=== PATIENT | male | born 1975 | race Caucasian/White ===

== ENCOUNTER 2022-05-05 08:58 | Emergency (ER) | payer OTHER, SELFPAY ==
[2022-05-05 09:01] VITALS: BP 136/100; PULSE 92; RESP 20; TEMP 36.9; O2SAT 97
--- NOTE | 2022-05-05 09:26 | ED.GENADUL_ITS ---
Discharge Plan Disposition Patient Disposition: Home Condition: Stable Discharge Details Clinical Impression: Pneumonia, Conjunctivitis ED Provider: Otis Solorio Home Meds and New Rx's Prescriptions: New doxycycline hyclate 100 mg tablet 100 mg PO BID Qty: 9 0RF Continued Centrum Silver Men 300-600-300 mcg Tablet 1 tab PO DAILY Discharge Instructions Instructions: Erythromycin (Into the eye), Pneumonia (ED), Conjunctivitis (ED) Additional Instructions: Apply 0.5 inch ribbon of antibiotic ointment to your eyes 4 times a day for the next 1 week. Take antibiotic as prescribed. COVID test today is pending. Please maintain home isolation until test result is available and negative. Please take ibuprofen over the counter. Take 600mg by mouth every 6 hours as needed for fever. Please contact your primary care physician to arrange follow-up. Return to the ER immediately for any worsening or new concerning symptoms. Stand Alone Forms: Work Release Medical Decision Making 46-year-old male here with 1 week of productive cough, fever and sinus congestion, now with conjunctivitis. Patient is saturating well in no respiratory distress, hemodynamically stable and not septic appearing. He does have some fine rales right lower lung. Plan to treat for pneumonia and conjunctivitis. I have initiated treatment with doxycycline and erythromycin. Usual customary discharge instructions reviewed with the patient. HPI General Mode of arrival: ambulatory . Date/Time Provider Initiated Documentation: 05/05/22 09:09 . Limitations to Documentation: no limitations . Information obtained by: patient . HPI Narrative: 46-year-old male here with chief complaint of eye inflammation. Patient states over the past 1 week he has had cough productive of green sputum. He has associated sinus congestion. Today woke up with inflammation of his eyes. He states he has had green discharge from his eyes. This morning they were sealed shut with. Symptoms are moderate. He notes cough has improved somewhat over the past couple days. He has had associated fever. No known exposure but patient does work in a post office. Related Data Home Medications Medication Instructions Recorded Confirmed doxycycline hyclate 100 mg tablet 100 mg PO BID #9 tabs 05/05/22 [id number] acid 300 1 tab PO DAILY 05/05/22 05/05/22 mcg-lycopene 600 mcg-lutein 300 mcg tablet (Centrum Silver Men) Previous Rx's Medication Instructions Recorded doxycycline hyclate 100 mg tablet 100 mg PO BID #9 tabs 05/05/22 Allergies Allergy/AdvReac Type Severity Reaction Status Date / Time No Known Allergies Allergy Unverified 05/05/22 09:07 General Stated Complaint: RespSymp PUJA: 4 Review of Systems All systems reviewed & are unremarkable except as noted in HPI and below Constitutional Constitutional: Reports fatigue and Reports fever(s) ENT Ears, Nose, Mouth, and Throat: Reports nasal congestion and Reports sore throat Respiratory Respiratory: Reports cough Gastrointestinal Gastrointestinal: Denies vomiting Integumentary/Breasts Skin/Breast: Denies rash Endocrine Endocrine: Reports fatigue PFSH All Active Problems Pneumonia (Acute) Conjunctivitis (Acute) Social History Smoking/Tobacco Use Status: Never Smoking risk assessment performed?: Yes Alcohol Intake: current Alcohol Intake frequency: a few times a week Drug use: Never Substance use type: does not use Do you feel safe at home: Yes Do you feel safe in your relationship?: Yes Exam Const General: cooperative and no acute distress HENMT Mouth: moist mucous membranes Eyes Conjunctivae: conjunctival abnormality bilaterally conjunctival injection Sclera: normal sclerae Neck Neck: trachea midline and supple Resp Effort & Inspection: normal respiratory effort and cough Quality of cough: productive Auscultation: rales (fine right lower lung), no rhonchi and no wheezes Cardio Rate: regular rate and not tachycardic Rhythm: regular rhythm GI Palpation: soft, not firm, no guarding, no masses, not rigid and nontender Skin General skin exam: no rashes or lesions noted Neuro General: patient alert, patient awake, patient oriented x3 and tone normal Extrem General: no edema Psych Appearance: grossly normal Mental Status: mental status grossly normal Speech and Movement: speech and movement normal Course Vital Signs Vital signs: Vital Signs Temperature 36.9 C 05/05/22 09:01 Pulse 92 H 05/05/22 09:01 Respiratory Rate 20 05/05/22 09:01 Blood Pressure 136/100 H 05/05/22 09:01 Pulse Oximetry 97 05/05/22 09:01 Temperature 36.9 C 05/05/22 09:01 Temperature Source Oral 05/05/22 09:01 Pulse 92 H 05/05/22 09:01 Respiratory Rate 20 05/05/22 09:01 Respiratory Effort 05/05/22 09:06 Blood Pressure 136/100 H 05/05/22 09:01 Blood Pressure Position Sitting 05/05/22 09:01 Pulse Oximetry 97 05/05/22 09:01 Oxygen Delivery Method Room Air 05/05/22 09:01 Oxygen Flow Rate 0 05/05/22 09:01 Pain Level 1 05/05/22 09:01 PAWSS Have you Been Recently Intoxicated or Drunk Within the Last 30 days?: Yes Have you Ever Experienced Previous Episodes of Alcohol Withdrawal?: No Have you ever Experienced Withdrawal Seizures?: No Have you ever Experienced Delirium Tremens(DT)s?: No Have you ever undergone Alcohol Rehabilitation Treatment (i.e, inpt ot outpatient treatment programs)?: No Have you ever Experienced Blackouts?: No Have you ever Combined Alcohol with other Downers within the last 90 days?: No Have you ever Combined Alcohol with any other Substance of Abuse during the last 90 days?: No Positive Blood Alcohol level on Presentation? [PCS.BAL]: No Evidence of Increased Autonomic Activity (i.e. HR>120, tremor, sweating, agitation, nausea)?: No Result: 1
[2022-05-05] MEDS: Erythromycin Ophth Oint 3.5 GM TUBE OU (09:38)
[2022-05-05] MEDS: Doxycycline Hyclate 100 MG CAP PO (09:38)
[2022-05-06 01:39] LABS: COVID-19 RT-PCR UVMMC Result Negative (Negative)
== END 2022-05-05 09:41 | disposition home or self-care (01) ==
PROVIDERS: Emergency Provider Student in an Organized Health Care Education/Training Program
DX: J18.9 Pneumonia, unspecified organism (principal); H10.33 Unspecified acute conjunctivitis, bilateral
CPT/HCPCS: 99283; U0003

== ENCOUNTER → 2023-06-17 17:03 | Outpatient (CLI) | payer OTHER, SELFPAY ==
--- NOTE | 2023-06-17 17:15 | DI.RAD_ITS ---
Exam(s) XR CERVICAL SPINE COMP 4-5V EXAM: XR CERVICAL SPINE COMP 4-5V CLINICAL HISTORY: evaluate pathology. TECHNIQUE: 2D digital imaging was performed. Five views were performed. COMPARISON: No exams were available for comparison FINDINGS: BONES: No fracture or destructive lesion. Vertebral bodies are unremarkable. DISKS: Intervertebral disc spaces are maintained. Uncovertebral joint osteophytes greater on the ri ght side causing neural foraminal narrowing at C3-4. No left neural foraminal narrowing. ALIGNMENT: Cervical spinal alignment is within normal limits. The odontoid and atlantoaxial articulat ions are normal. SOFT TISSUE: Normal. The lung apices are clear. IMPRESSION: Neural foraminal narrowing at C3-4 secondary to uncovertebral joint osteophyte formation. DATA REPOSITORY: RADIATION DOSE DELIVERED:
--- NOTE | 2023-06-17 17:53 | DI.VRAD_ITS ---
PROCEDURE INFORMATION: Exam: XR Cervical Spine Exam date and time: 06/17/2023 5:21 PM Age: 47 years old Clinical indication: Other: Evaluate pathology TECHNIQUE: Imaging protocol: Radiologic exam of the cervical spine. Views: 4 or 5 views. COMPARISON: No relevant prior studies available. FINDINGS: Limitations: Limited clinical history. Bones/joints: Normal. No acute fracture. Normal alignment. Soft tissues: Unremarkable. IMPRESSION: No acute findings. Dictated and Authenticated by: Nahomy Dawson MD. Ordering:MEDINA Ku MD
== END ==
PROVIDERS: Visit Provider Nurse Practitioner Family
DX: M99.71 Connective tissue and disc stenosis of intervertebral foramina of cervical region; M25.78 Osteophyte, vertebrae
CPT/HCPCS: 72050

== ENCOUNTER 2023-09-21 18:54 | Outpatient (CLI) | payer OTHER, SELFPAY ==
[2023-09-21 17:24] LABS: ALT 39 U/L (16-63); AST 18 U/L (15-37); Albumin 4.2 g/dL (3.4-5.0); Alkaline Phosphatase 80 U/L (46-116); Anion Gap 9.6 mmol/L (3-11); BUN 24 mg/dL (7-18); Bilirubin, Total 0.4 mg/dL (0.2-1.0); CO2 31.4 mmol/L (21.0-32.0); CREATININE 1.3 mg/dL (0.70-1.30); Calcium 9.5 mg/dL (8.5-10.1); Calculated LDL 251 mg/dL (<100); Chloride 106 mmol/L (98-107); Cholesterol 349 mg/dL (<200); Estimated GFR 67.76 (mL/min/1.73m2); Glucose 118 mg/dL (74-106); HDL Cholesterol 55 mg/dL (40-60); Potassium 4.7 mmol/L (3.5-5.1); Sodium 147 mmol/L (136-145); TSH (W/Ref FT4) 1.87 uIU/mL (0.36-3.74); Total Protein 7.2 g/dL (6.4-8.2); Triglyceride 219 mg/dL (<150)
[2023-09-22 20:16] LABS: Hepatitis C Ab w Rflx HCV PCR Negative (Negative)
== END 2023-09-21 18:55 | disposition home or self-care (01) ==
LOC: LBO 18:55
PROVIDERS: PCP Nurse Practitioner Family; Visit Provider Nurse Practitioner Family
DX: Z76.89 Persons encountering health services in other specified circumstances
CPT/HCPCS: 36415; 80053; 80061; 86803; 83036; 84443; 85025

== ENCOUNTER 2024-01-11 10:22 | Emergency (ER) | payer OTHER, SELFPAY ==
[2024-01-11] VITALS (33 sets, daily range): BP systolic 112–176; BP diastolic 70–116; PULSE 65–101; RESP 13–24; O2SAT 96–100
--- NOTE | 2024-01-11 10:30 | DI.RAD_ITS ---
Exam(s) XR WRIST LT COMPLETE EXAM: XR WRIST LT COMPLETE CLINICAL HISTORY: pain s/p fall. TECHNIQUE: 2D digital imaging was performed. COMPARISON: No exams were available for comparison FINDINGS: 3 views There is an acute comminuted impacted and displaced fracture of the distal radius which also exhibits dorsal angulation and involvement of the radiocarpal joint. There is resultant positive ulnar varia nce. Small osteophytic density is seen adjacent to the tip of the ulna but this does not have the appearan ce of an obvious acute fracture fragment. The scaphoid and scapholunate distance appear intact and t here is no dislocation of the carpal row bones. IMPRESSION: Severely comminuted and displaced intra-articular impacted fracture of the distal radius. There is a lso dorsal angulation at the distal radial fracture site. No acute fracture of the distal ulna but t here is resultant positive ulnar variance. DATA REPOSITORY: RADIATION DOSE DELIVERED:
--- NOTE | 2024-01-11 10:30 | DI.RAD_ITS ---
Exam(s) XR FOREARM LT EXAM: XR FOREARM LT CLINICAL HISTORY: pain s/p fall. TECHNIQUE: 2D digital imaging was performed. COMPARISON: No exams were available for comparison FINDINGS: Two views. There is a comminuted displaced and dorsally angulated fracture of the distal radius with involvement of the radiocarpal joint surface. No obvious fracture of the ulna. More proximal aspects of the radius and ulna appear unremarkable, including at the elbow level. IMPRESSION: Comminuted displaced angulated fracture of the distal radius. DATA REPOSITORY: RADIATION DOSE DELIVERED:
--- NOTE | 2024-01-11 10:42 | W.ED.GENAD ---
Discharge Plan Disposition Patient Disposition: Home Condition: Stable Discharge Details Clinical Impression: Fracture of left wrist Primary Care Provider: Demi Domingo ED Provider: Bg Sorto Home Meds and New Rx's Prescriptions: Continued rosuvastatin 10 mg tablet 10 mg PO DAILY Qty: 90 3RF Centrum Silver Men 300-600-300 mcg Tablet 1 tab PO DAILY Discharge Instructions Additional Instructions: You can use a sling as needed for comfort in supporting your arm Call orthopedics tomorrow to arrange for follow-up appointment. I would recommend not having any food after midnight and only having water or black coffee in case they want to do any procedures tomorrow You can take 1000 mg of acetaminophen and 600 mg of ibuprofen every 6 hours as needed If you feel more ill or have new symptoms such as severe worsening pain return to the emergency department for Referrals: Favian Michael MD [ [facility] STAFF PHYSICIAN] - HPI General Mode of arrival: ambulatory. Date/Time Provider Initiated Documentation: 01/11/24 10:37. Limitations to Documentation: no limitations. Information obtained by: patient. History of Present Illness 48 year old M presents to the emergency department with the chief complaint of left wrist injury, described as moderate, Quality is described as aching, and is localized to the left and upper extremity. Patient reports no radiation. Patient started experiencing this minute(s) (30) and it has been constant. No relieving factors improve symptom(s), No exacerbating factors reported . Patient notes denies chest pain, headaches and shortness of breath. Patient did receive the following treatments prior to arrival, none Related Data Home Medications ?Medication ?Instructions ?Recorded ?Confirmed [id number]-ze-zsvqt 300 mcg-K 60 1 tab PO DAILY 05/05/22 01/11/24 mcg-lycop 600 mcg-lutein 300 mcg tablet (Centrum Silver Men) rosuvastatin 10 mg tablet 10 mg PO DAILY #90 tabs 09/23/23 01/11/24 Previous Rx's ?Medication ?Instructions ?Recorded rosuvastatin 10 mg tablet 10 mg PO DAILY #90 tabs 09/23/23 Allergies Allergy/AdvReac Type Severity Reaction Status Date / Time No Known Allergies Allergy Unverified 01/11/24 10:36 General Stated Complaint: Orthopedic PUJA: 3 Review of Systems All systems reviewed & are unremarkable except as noted in HPI and below Constitutional Constitutional: Denies chills, Denies fever(s) and Denies weakness Eyes Eyes: Denies loss of vision Cardiovascular Cardiovascular: Denies chest pain and Denies dyspnea Respiratory Respiratory: Denies cough and Denies dyspnea Gastrointestinal Gastrointestinal: Denies abdominal pain, Denies nausea and Denies vomiting Musculoskeletal Musculoskeletal: Reports limited range of motion Neurologic Neurologic: Denies loss of vision and Denies weakness Exam Const General: no acute distress Orientation: alert HENMT Head: normal to inspection Ears: external ears normal General nose exam: external nose normal Mouth: moist mucous membranes Eyes General: appearance normal, both eyes and all related structures Neck Neck: normal visual inspection Resp Effort & Inspection: normal respiratory effort and able to speak in complete sentences Cardio Rate: regular rate Skin General skin exam: no rashes or lesions noted Neuro General: patient alert and patient oriented x3 Extrem General: capillary refill normal Psych Mental Status: mental status grossly normal Course Vital Signs Vital signs: Vital Signs Pulse 77 01/11/24 10:32 Respiratory Rate 24 01/11/24 10:32 Blood Pressure 123/76 01/11/24 10:32 Pulse Oximetry 97 01/11/24 10:32 Pulse 77 01/11/24 10:32 Respiratory Rate 24 01/11/24 10:32 Blood Pressure 123/76 01/11/24 10:32 Blood Pressure Position Sitting 01/11/24 10:32 Pulse Oximetry 97 01/11/24 10:32 Oxygen Delivery Method Room Air 01/11/24 10:32 Oxygen Flow Rate 0 01/11/24 10:32 Procedures Procedural Sedation Indication: fracture/dislocation reduction ASA Class: I Preparation: machine joiner cementer applied, pulse oximeter, capnometry used and supplemental O2 applied Ketamine: IV Ketamine dose (mg): 150 Patient Tolerated Procedure: well Complications: none Medical Decision Making 48-year-old male with a history of hyperlipidemia not on any anticoagulation comes in after he fell approximately 10 feet off a ladder. Landed on his left hand and denies striking his head and had no loss of consciousness. He has pain in the left wrist, with swelling and limited range of motion due to pain. No pain in the fingers or hand with intact cap refill and pulses. He also has pain in the mid left forearm without palpable deformity. He has no midline C-spine, T-spine, L-spine tenderness and has full range of motion of his neck. There is no Scalp hematomas. He says he bit his left lower lip and has a small abrasion to the left lower lip. No changes in vision, pupils are equal and reactive to light. No chest or abdominal tenderness. Suspect he has a wrist fracture, will obtain x-rays to further evaluate. He has mild right knee soreness but has full range of motion and is bearing weight without any difficulty, discussed obtaining x-rays of his knee but he declines which I feel is reasonable. patient's imaging confirms a comminuted displaced impacted distal radius fracture and a small ulnar styloid fracture. Discussed results with him and he consents to hematoma block and attempt at reduction. I injected 10 cc of 2% lidocaine after drawing back and having blood return in the hematoma he had mild decrease in pain but still had too much pain to successfully reduce so we will proceed with procedural sedation which he consents to. He says he said anesthesia before without any issues. I provided sedation and Sejal Arana NP attempted reduction, no ortho information systems security manager today, no complications, 150mg iv ketamine given. Follow up xray showed improvement in fragments but still had displacement of the radial head. He was placed in a sugar-tong splint, he has intact sensation and movement in his fingers and normal cap refill post splint. He is stable for discharge and will follow-up with Ortho, return precautions given Differential Diagnosis Differential Diagnosis: Fracture, dislocation Imaging Data Radiologic Study: Attestation: I personally reviewed and interpreted this imaging study as follows: Imaging: X-Ray Radiologist's impression: PROCEDURE INFORMATION: Exam: XR Left Forearm Exam date and time: 01/11/2024 10:57 AM Age: 48 years old Clinical indication: Other: Fall TECHNIQUE: Imaging protocol: Radiologic exam of the left forearm. Views: 2 views. COMPARISON: CR XR WRIST LT COMPLETE 01/11/2024 10:55 AM FINDINGS: Bones/joints: Comminuted displaced impacted distal radius fracture. . There is a small ulnar styloid fracture. Soft tissues: Soft tissue swelling of the wrist IMPRESSION: 1. Comminuted displaced impacted distal ra Radiologic Study #2: Attestation: I personally reviewed and interpreted this imaging study as follows: Imaging: X-Ray Radiologist's impression: PROCEDURE INFORMATION: Exam: XR Left Wrist Exam date and time: 01/11/2024 10:55 AM Age: 48 years old Clinical indication: Other: Fall TECHNIQUE: Imaging protocol: Radiologic exam of the left wrist. Views: 3 or more views. COMPARISON: No relevant prior studies available. FINDINGS: Bones/joints: Comminuted displaced impacted distal radius fracture.. There may be minimal ulnar styloid fracture Soft tissues: Soft tissue swelling of the wrist IMPRESSION: Comminuted displaced impacted distal radius fracture.. Radiologic Study #3: Attestation: I personally reviewed and interpreted this imaging study as follows: Imaging: X-Ray Radiologist's impression: PROCEDURE INFORMATION: Exam: XR Left Wrist Exam date and time: 01/11/2024 12:42 PM Age: 48 years old Clinical indication: Other: Post reduction TECHNIQUE: Imaging protocol: Radiologic exam of the left wrist. Views: 1 or 2 views. COMPARISON: CR XR WRIST LT COMPLETE 01/11/2024 10:55 AM FINDINGS: Bones/joints: Comminuted displaced distal radius fracture. Fracture fragments have been reduced and are improved in alignment. This study is viewed through a plaster Soft tissues: Soft tissue swelling of the wrist IMPRESSION: Comminuted displaced distal radius fracture. Fracture fragments have been reduced and are improved in alignment. Quality:SDOH Health Related Social Needs: No Data to Display PFSH All Active Problems (Updated 01/11/24 @ 13:24 by Bg Sorto MD) Fracture of left wrist (Acute) Hyperlipidemia (Chronic) Bilateral hearing loss (Chronic) Psoriasis (Chronic) Obesity (BMI 30-39.9) (Chronic) Surgical History No pertinent past surgical history Family History Self Adopted Social History (Updated 07/02/23 @ 15:05 by Sarita Rose) Smoking/Tobacco Use Status: Never Smoking risk assessment performed?: Yes Alcohol Intake: current Alcohol Intake frequency: a few times a week Alcohol type: beer, wine and hard liquor Drug use: Never Substance use type: does not use Adopted: Yes Caregiver/Support person: No Household members: none Housing: house Education Level: college Details: some college Do you need help understanding health information?: Never 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 Sexually active: No Do you think of yourself as: straight/heterosexual Current gender identity: male What is your relationship status?: How often do you talk on the phone with friends or family?: once per week How often do you get together with friends or relatives?: once per week Do you belong to any clubs or organized social groups?: no Panel score (0-1 are the most socially isolated patients): 0 What type of physical activity do you participate in: none Frequency: does not exercise Special prakash needs: No Seatbelt use: always Drive intox or ride w/intox non emergency services ambulance driver: No Firearms in home: No Do you feel safe at home: Yes Do you feel safe in your relationship?: Yes Victim of physical abuse: No Victim of emotional abuse: No Victim of sexual abuse: No Would you like helpful sources: No
--- NOTE | 2024-01-11 11:17 | DI.VRAD_ITS ---
PROCEDURE INFORMATION: Exam: XR Left Forearm Exam date and time: 01/11/2024 10:57 AM Age: 48 years old Clinical indication: Other: Fall TECHNIQUE: Imaging protocol: Radiologic exam of the left forearm. Views: 2 views. COMPARISON: CR XR WRIST LT COMPLETE 01/11/2024 10:55 AM FINDINGS: Bones/joints: Comminuted displaced impacted distal radius fracture. . There is a small ulnar styloid fracture. Soft tissues: Soft tissue swelling of the wrist IMPRESSION: 1. Comminuted displaced impacted distal radius fracture. . 2. There is a small ulnar styloid fracture. Dictated and Authenticated by: Tess Austin MD. Ordering:ROSALIO Pederson MD
--- NOTE | 2024-01-11 11:17 | DI.VRAD_ITS ---
PROCEDURE INFORMATION: Exam: XR Left Wrist Exam date and time: 01/11/2024 10:55 AM Age: 48 years old Clinical indication: Other: Fall TECHNIQUE: Imaging protocol: Radiologic exam of the left wrist. Views: 3 or more views. COMPARISON: No relevant prior studies available. FINDINGS: Bones/joints: Comminuted displaced impacted distal radius fracture.. There may be minimal ulnar styloid fracture Soft tissues: Soft tissue swelling of the wrist IMPRESSION: Comminuted displaced impacted distal radius fracture.. Dictated and Authenticated by: Tess Austin MD. Ordering:ROSALIO Pederson MD
[2024-01-11] MEDS: Normal Saline 1,000 ML 1000 ML IV (11:55)
--- NOTE | 2024-01-11 12:15 | DI.RAD_ITS ---
Exam(s) XR WRIST LT LIMITED EXAM: XR WRIST LT LIMITED CLINICAL HISTORY: post reduction attempt. TECHNIQUE: 2D digital imaging was performed. COMPARISON: No exams were available for comparison FINDINGS: Two post reduction views, taken with plaster splint in place. Again noted is the displaced impacted previously described fracture of the distal radius. There is improved alignment at the fracture site with elimination of the dorsal angulation. Small os teophytic density off the distal ulna may indeed be a small triangular fracture fragment. On these p ost reduction images there is no significant ulnar variance remaining. Scaphoid and scapholunate dis tance appear intact. IMPRESSION: Distal radius fracture exhibits improved alignment on these post closed reduction images. DATA REPOSITORY: RADIATION DOSE DELIVERED:
[2024-01-11] MEDS: Lidocaine 2% Multi-Dose 50 ML VIAL (12:24)
[2024-01-11] MEDS: Ketamine 500 MG/10 ML VIAL 200 MG IVP (12:25)
--- NOTE | 2024-01-11 12:25 | W.ED.PROC ---
Date of service: 01/11/24 Time of Service: 12:25 Procedures Orthopedic Fracture Reduction Fracture #1: Time Out Performed: Yes Side: left Fracture Reduction Location: radius Analgesia: procedural sedation Technique: direct manipulation and traction/counter-traction Post Reduction X-rays Demonstrate: anatomical reduction Post-reduction neuro exam: intact Post-reduction vascular exam: intact Splint Applied: Yes (Plaster Sugar Tong) Patient Tolerated Procedure: well Medical Decision Making Assisted Dr. Sorto with reduction of left distal radius fracture. Deformity seem to be more anatomical alignment postprocedure. Sugar-tong splint with plaster applied. Distal CMS intact after splint application. Patient remained stable throughout the procedure. Quality:SDOH Health Related Social Needs: No Data to Display
--- NOTE | 2024-01-11 13:02 | DI.VRAD_ITS ---
PROCEDURE INFORMATION: Exam: XR Left Wrist Exam date and time: 01/11/2024 12:42 PM Age: 48 years old Clinical indication: Other: Post reduction TECHNIQUE: Imaging protocol: Radiologic exam of the left wrist. Views: 1 or 2 views. COMPARISON: CR XR WRIST LT COMPLETE 01/11/2024 10:55 AM FINDINGS: Bones/joints: Comminuted displaced distal radius fracture. Fracture fragments have been reduced and are improved in alignment. This study is viewed through a plaster Soft tissues: Soft tissue swelling of the wrist IMPRESSION: Comminuted displaced distal radius fracture. Fracture fragments have been reduced and are improved in alignment. Dictated and Authenticated by: Tess Austin MD. Ordering:ROSALIO Pederson MD
== END 2024-01-11 13:48 | disposition home or self-care (01) ==
PROVIDERS: Emergency Provider Emergency Medicine; PCP Nurse Practitioner Family
DX: S52.572A Other intraarticular fracture of lower end of left radius, initial encounter for closed fracture (principal); S52.612A Displaced fracture of left ulna styloid process, initial encounter for closed fracture; E78.5 Hyperlipidemia, unspecified; W11.XXXA Fall on and from ladder, initial encounter
CPT/HCPCS: 96360; 99152; 99284; 25605; 73090; 73100; 73110; 99283; J2003

== ENCOUNTER 2024-01-15 08:44 | Day surgery (SDC) | payer OTHER, SELFPAY ==
[2024-01-15] VITALS (20 sets, daily range): BP systolic 80–141; BP diastolic 47–92; PULSE 61–91; RESP 9–20; TEMP 36–36.7; O2SAT 91–98; BMI 30.9
--- NOTE | 2024-01-15 07:09 | PDOC.DSDIS_ITS ---
Date of service: 01/15/24 Time of Service: 13:00 Discharge Plan Disposition Patient Disposition: Home Condition: Stable Discharge Details Attending Provider: Jose Francisco Garza Primary Care Provider: Demi Domingo Home Meds and New Rx's Prescriptions: New naproxen 250 mg tablet 250 - 500 mg PO BID PRNQty: 40 0RF Rx Instructions: take with a meal oxycodone 5 mg tablet 5 - 10 mg PO Q4H MDD 30 mg PRN (Reason: moderate to severe pain) Qty: 18 0RF Continued rosuvastatin 10 mg tablet 10 mg PO DAILY Qty: 90 3RF Centrum Silver Men 300-600-300 mcg Tablet 1 tab PO DAILY Discontinued naproxen sodium [Aleve] 220 mg tablet 220 mg PO BID PRN Discharge Instructions Additional Instructions: Surgery: Left distal radius ORIF Activity: Nonweightbearing left wrist. Recommend elevation to minimize swelling and discomfort. Encourage passive and active range of motion of fingers and thumb to prevent stiffness. Return to work: No weight bearing, carrying, or lifting with left wrist for about 6-8 weeks. May return to work and use hand for gentle manual tasks like writing/ typing when comfortable (typically 1-2 weeks). Prescriptions: Naproxen 250 mg take 1-2 every 12 hours with a meal as needed for moderate pain Oxycodone 5 mg take 1-2 every 4-6 hours as needed for severe pain You may use nsmz-xxt-ifvaxoc Tylenol (acetaminophen) as needed for mild pain. These pain medications may be taken all at once or in different combinations as needed. Also, recommend Colace (docusate) as a stool softener as surgery and pain medicine cause constipation. You may try kyfz-ukk-rhjciya diphenhydramine (Benadryl) 25-50 mg nightly as a sleep aid Dressings: Leave splint and dressing in place until follow-up. Keep clean and dry at all times. Follow-up: 10-[address] Garza You may take off the leg compression stockings this evening at home. You may also leave them on a few days longer if you have a history of leg swelling or edema. Let us know right away if you develop any redness, drainage, fevers, chest pain, or trouble breathing. Do not drink alcohol or drive for at least 24 hours after anesthesia. Please call the office during business hours with any questions or concerns. Stand Alone Forms: Anesthesia Discharge Inst., Anes.Nerve Block Instructions, Pasquale Doss (DSU) Referrals: Jose Francisco Garza MD [ [facility] ST[facility]FF PHYSICIAN] - 01/27/24 8:45 am Discharge Orders Discharge Orders: Discharge Order (Routine); Ordered 01/15/24 Ordered By: Radha Harrison DS: Diagnosis Discharge Diagnosis (1) Displaced fracture of distal end of left radius: Status: Acute
--- NOTE | 2024-01-15 07:19 | ROE_ITS ---
Date of service: 01/15/24 Time of Service: 12:00 Operative Note Operative Note DATE OF PROCEDURE: 01/15/24 PRE-OP DIAGNOSIS: Displaced left distal radius fracture POST-OP DIAGNOSIS: same PROCEDURE: Left distal radius ORIF, intra-articular 3 fragments, CPT #09103 SURGEON: Jose Francisco Garza INSURANCE VERIFICATION CLERK: Radha Harrison ANESTHESIA TYPE: Local By Surgeon, General LMA/ETT and Primary Nerve Block Refer to Anesthesia Record COMPLICATIONS: None Patient was transported to: PACU Patient's condition: stable Indications: Please see complete medical record for details. Findings: Synthes 2.4 mm variable angle LCP distal radius system with 7 distal 2.4 mm locking screws and 3 proximal 2.7 mm cortex first Procedure Description: In the operating room, general anesthesia was induced. The patient was positioned supine on the operating room table. All bony prominences were well-padded. Preoperative antibiotics were administered. The left wrist was prepped and draped in the usual sterile fashion. The correct patient, procedure, and side of the procedure were all verified prior to incision. The left wrist was examined. There was moderate edema. The radial pulse was not palpable, but there was brisk cap refill. Compartments were all compressible. The modified volar Quinten approach to the distal radius was taken obtain access through the FCR sheath with care taken to identify and retract the radial artery earlier radially and FCR and everything else ulnarly. The radial artery was intact, but positive been in spasm as it was not visibly florence. Deeply the pronator quadratus was sharply incised on the radial margin and swept ulnarly exposing the volar distal radius. Soft tissue and some comminution was removed from the fracture site. There was notable radial styloid comminution. The radial styloid lunate facet intra-articular fractures and remainder of distal radius could be reduced as a unit to the shaft taking care to apply ulnar deviation to avoid shortening about the radial styloid comminution in the metaphysis. Blue towel bumps were used to maintain volar flexion force and reduction while an appropriate length plate was applied, a slightly longer, as well as wider plate was chosen to accommodate the size of the patient and have good plate spread slightly more distal than usual for the comminution about the fracture site. Additional proximal bicortical 2.7 millimeter screw was placed to lock plate position. After plate initially tata lied with a central cortex screw and then adjusted to best fit the fracture and patient anatomy. With the fracture carefully maintained reduction the distal locking screw holes were drilled and filled with locking screws using fluoroscopic assistance to get appropriate length into the radial styloid especially as well as the lunate facet while subtracting and drilling unit cortically for the remainder of the short and distal most screws. Remaining third proximal screw hole was drilled and filled. The radial styloid screw was subtracted slightly shorter. Final x-rays were taken and showed good fracture reduction and appropriate hardware placement with known slight distal plate placement to best accommodate this fracture. The wound was copiously irrigated with normal saline. The pronator quadratus was swept back radially. Hemostasis was appropriate. Subcutaneous tissue was irrigated. Radial artery was intact but still not visibly pulsatile. Subcutaneous tissue closed with 2-0 and 3-0 Monocryl. Skin closed 3-0 Monocryl running subcuticular. Steri-Strips applied with Mastisol followed by Xeroform 4 x 4 gauze and volar plaster splint. The patient awoke from anesthesia without complication and was transferred to the recovery room in a stable condition.
--- NOTE | 2024-01-15 08:12 | W.ANESPRE ---
General Info Date of Service Date Performed: 01/15/24 Height: 6 ft 1 in Weight: 106.141 kg Body Mass Index (BMI): 30.9 Surgical Procedure: Operation Date: 01/15/24 10:40 Proposed Procedure Side Surgeon p Wrist ORIF Distal Radius Left Jose Francisco Garza MD Actual Procedure Side Surgeon p Wrist ORIF Distal Radius Left Jose Francisco Garza MD Meds Allergies and Home Medications Allergies Allergy/AdvReac Type Severity Reaction Status Date / Time caffeine Allergy Intermediate diarrhea, Verified 01/15/24 09:15 rapid heart rate coconut Allergy Intermediate Diarrhea Verified 01/15/24 09:15 Home Medication ?Medication ?Instructions ?Recorded zyzksswx-vd-abzhe 300 mcg-K 60 1 tab PO DAILY 05/05/22 mcg-lycop 600 mcg-lutein 300 mcg tablet (Centrum Silver Men) rosuvastatin 10 mg tablet 10 mg PO DAILY #90 tabs 09/23/23 naproxen sodium 220 mg tablet 220 mg PO BID PRN 01/12/24 (Aleve) Current Visit Medications: Current Medications Generic Name Dose Route Start Last Admin Trade Name Freq PRN Reason Stop Dose Admin Ringer's Solution 1,000 mls @ 30 mls/hr 01/15/24 06:00 IV 02/13/24 23:59 INFUSION MONIQUE Cefazolin Sodium 3,000 mg/ 100 mls @ 200 mls/hr 01/15/24 06:00 Sodium Chloride IVPB 01/15/24 16:00 PREOP MONIQUE IV Miscellaneous Supplies 1 each 01/15/24 06:00 Iv Access IV 02/13/24 23:59 DIRECTED MONIQUE Oxycodone HCl 0 mg 01/15/24 07:09 Oxycodone 5 Mg Tab PO 02/14/24 07:08 Q3H PRN PRN Pain Sodium Chloride 0 ml 01/15/24 06:00 Normal Saline Flush 10 Ml Syr IV 02/13/24 23:59 PRN PRN Sodium Chloride 0 ml 01/15/24 06:00 Normal Saline 10 Ml Vial IJ 02/13/24 23:59 DIRECTED PRN Sterile Water 0 ml 01/15/24 06:00 Water,Injection,Sterile 10 Ml Vial IJ 02/13/24 23:59 DIRECTED PRN PFSH Active Problems Active Problems: Problem Status Onset Code Displaced fracture of distal end of left radius Acute 01/11/24 S52.502A Obesity (BMI 30-39.9) Chronic E66.9 Hyperlipidemia Chronic E78.5 Bilateral hearing loss Chronic H91.93 Psoriasis Chronic L40.9 Surgical History Surgical History (Updated 01/13/24 @ 15:37 by Jas Still) Hx of wisdom tooth extraction No pertinent past surgical history Tobacco Smoking/Tobacco Use Status: Never Passive smoking exposure: Yes Alcohol Alcohol Intake: current Alcohol intake frequency: a few times a week Alcohol type: beer, wine and hard liquor Substance Use Substance use: Never Substance use type: does not use Vital Signs and Lab Results Vital Signs Most Recent Vital Signs in EMR: Temp Pulse Resp BP Pulse Ox 36.6 C 90 18 141/92 H 96 01/15/24 09:17 01/15/24 09:17 01/15/24 09:17 01/15/24 09:17 01/15/24 09:17 Lab Results Blood Type / Crossmatch: No Data to Display Complete Blood Count: No Data to Display Complete Metabolic Panel: No Data to Display Liver Function Panel: No Data to Display Coagulation Panel: No Data to Display Cardiac Panel: No Data to Display Arterial Blood Gas: No Data to Display Venous Blood Gas: No Data to Display Pancreas Panel: No Data to Display Thyroid Panel: No Data to Display Infectious Disease: No Data to Display Blood Cultures: No Data to Display Toxicology Panel: No Data to Display Anesthesia Assessment and Plan Anesthesia History Personal History: No History of Anesthesia Complications Family History: Family History Unknown Exercise Tolerance Exercise Tolerance: Metabolic Equivalents>4 Cardiac & Pulmonary Exam Cardiac Exam: Normal S1/S2 Heart Sounds Pulmonary Exam: Clear Bilateral Breath Sounds Implantable Cardiac Device Does patient have a Pacemaker or an ICD?: No Airway Exam Known Difficult Airway: No Mallampati Class: 3 Mouth Opening: Narrow (< 3cm) Thyromental Distance: Greater than 3 cm Facial Hair: Full Hope Neck Range of Motion: Full ROM Neck Circumference: Normal Teeth Condition: Normal Dentition ASA Classification ASA Score: ASA 2 Emergency Case?: No NPO Status NPO Status: NPO Clears >2 hours, Solids >8 hours Anesthesia Plan Resuscitation Status: Full Code Anesthesia Technique: General Anesthesia Airway Planned: LMA Monitors Used: Standard Monitors Preoperative Comments:: 48 yo male for ORIF left radius fracture after falling off his ladder earlier this week. Reduction was attempted in the ED with 150 mg Ketamine. Sig PMHx: never smoker, occ EtOH. denies major. Denies GERD, minus diet related with tomato sauce. Appropriately NPO. Discussed nerve block risks (failure, nerve injury, numbness), he would like to proceed. He does have numbness in the very tips of his fingers, but that is realved with his hand above his head, denies numbness anywhere else.
[2024-01-15] MEDS: Lactated Ringers 1,000 ML 30 ML IV (09:23)
--- NOTE | 2024-01-15 09:30 | DI.RAD_ITS ---
Exam(s) XR WRIST LT LIMITED EXAM: XR WRIST LT LIMITED CLINICAL HISTORY: left distal radius fracture TECHNIQUE: 2D and realtime digital imaging was performed. CONTRAST MATERIAL: Refer to procedure report. COMPARISON: CR,XR XR WRIST LT LIMITED from 01/11/2024 FINDINGS: Fluoroscopy was provided for Dr. Garza during the performance of a reduction and internal fixation of the distal radial fracture. Please refer to the procedure report for complete details. Ka,r=0.77 mGy IMPRESSION: RADIATION DOSE DELIVERED: 0.0 0.0 0
--- NOTE | 2024-01-15 10:48 | W.ANESNERVE ---
Nerve Block Single Injection Procedure Date and Time Date Performed: 01/15/24 Procedure Start: :24 Location Where Procedure Performed Procedure Location: Day Surgery Unit Reason Performed: Acute Pain Management (and post operative pain management for left wrist fracture. ) Pain Diagnosis: Wrist Pain Requesting Provider: Jose Francisco Garza Timeout Performed Timeout Performed: Yes Monitoring Used ECG, Blood Pressure and SpO2 Sterility Sterility: Hand Hygiene, Surgical Cap, Surgical Mask, Sterile Gloves and Chlorhexidine Sedation Given During Procedure Sedation Given (Indicate Dose Given): Versed IV (2 mg + 2 mg) Dose:: 4 mg Patient Mental Status Patient Mental Status: Sedate with meaningful communication Nerve Block 1st Nerve Block: Laterality: Left Block Type: Axillary Ultrasound Image Saved?: Yes Needle / Catheter Used: 100mm SonoPlex II Local Anesthetic Bolus (Indicate Dose Given): Lidocaine used for local infiltration of skin, Bupivacaine 0.5% Dose:: 20 mL and Exparel Dose:: 10 mL Additives (Indicate Dose Given): None Ultrasound: Sterile probe cover and gel used Nerve Stimulator: Supplement to Ultrasound use and No twitch or parasthesia noted < 0.5 mA Paresthesia: None Procedure Tolerated: No Complications Procedure Outcome: Successful Performed By: Issac Sepulveda
[2024-01-15] MEDS: ceFAZolin 3,000 MG in Normal Saline 100 ML 200 MG IVPB (11:04)
[2024-01-15] MEDS: Bupivacaine 0.25% Pres-Free W/EPI 30 ML VIAL (11:42)
--- NOTE | 2024-01-15 14:11 | W.ANESPOSTOP ---
Postoperative Evaluation Date, Time and Location Date Performed: 01/15/24 Time Performed: 14:11 Patient Location: PACU Vital Signs Most Recent Imported Vital Signs: Most Recent Vital Signs Temp Pulse Resp BP Pulse Ox 36.3 C L 65 15 86/47 L 95 01/15/24 13:58 01/15/24 13:58 01/15/24 13:58 01/15/24 13:58 01/15/24 13:58 Pain Score Most Recent Pain Score: Most Recent Pain Score Pain Level 0 01/15/24 13:58 Assessment Mental Status: Awake (Alert & Oriented to Patient Baseline) Airway and Respiratory Function: Patent airway with normal (patient baseline) respiratory exam Cardiovascular Function: Hemodynamically Stable Hydration Status: Adequately Hydrated Nausea & Vomiting: No Nausea or Vomiting Pain: Pt. Denies Any Pain Peripheral Nerve Block: Regional nerve block not resolved at time of post operative discharge
== END 2024-01-15 16:17 | disposition home or self-care (01) ==
LOC: SUR 08:44
PROVIDERS: PCP Nurse Practitioner Family; Visit Provider Student in an Organized Health Care Education/Training Program
PROC: (CPT 25609; principal; 2024-01-15 10:30)
DX: S52.502A Unspecified fracture of the lower end of left radius, initial encounter for closed fracture (principal); X58.XXXA Exposure to other specified factors, initial encounter
CPT/HCPCS: 25609; 76000; 76942; 73100; C9290; J0131; J0665; J0690; J1100; J2250; J2405; J2704

== ENCOUNTER 2024-01-27 14:11 | Outpatient (CLI) | payer OTHER, SELFPAY ==
--- NOTE | 2024-01-27 08:45 | DI.RAD_ITS ---
Exam(s) XR WRIST LT LIMITED EXAM: XR WRIST LT LIMITED INDICATION: F/U WRIST ORIF. COMPARISON: CR,XR XR WRIST LT COMPLETE from 01/11/2024 XA XR WRIST LT LIMITED from 01/15/2024 TECHNIQUE: 2D digital imaging was performed. Two views. FINDINGS: There are stable alignment of the volar fixation plate. The comminuted distal radial fracture alignm ent is also stable. Tiny ulnar styloid fracture fragment again noted. No new abnormalities. DATA REPOSITORY: RADIATION DOSE DELIVERED:
== END 2024-01-27 14:12 | disposition home or self-care (01) ==
LOC: DIORS 14:12
PROVIDERS: PCP Nurse Practitioner Family; Visit Provider Student in an Organized Health Care Education/Training Program
DX: S52.612D Displaced fracture of left ulna styloid process, subsequent encounter for closed fracture with routine healing (principal); X58.XXXD Exposure to other specified factors, subsequent encounter
CPT/HCPCS: 73100

== ENCOUNTER 2024-03-09 08:30 | Outpatient (CLI) | payer OTHER, SELFPAY ==
--- NOTE | 2024-03-09 07:45 | DI.RAD_ITS ---
Exam(s) XR WRIST LT LIMITED EXAM: XR WRIST LT LIMITED INDICATION: F/U FRACTURE. COMPARISON: No exams were available for comparison TECHNIQUE: 2D digital imaging was performed. Two views. FINDINGS: A volar fixation plate remains in place along the distal radius. There has been continued healing of the distal radial fracture. No new abnormalities. DATA REPOSITORY: RADIATION DOSE DELIVERED:
== END 2024-03-09 08:31 | disposition home or self-care (01) ==
LOC: DIORS 03-10 07:56
PROVIDERS: PCP Nurse Practitioner Family; Visit Provider Student in an Organized Health Care Education/Training Program
DX: S52.612D Displaced fracture of left ulna styloid process, subsequent encounter for closed fracture with routine healing (principal); X58.XXXD Exposure to other specified factors, subsequent encounter
CPT/HCPCS: 73100

== ENCOUNTER 2024-04-19 14:44 | Outpatient (CLI) | payer OTHER, SELFPAY ==
--- NOTE | 2024-04-19 08:15 | DI.RAD_ITS ---
Exam(s) XR WRIST LT LIMITED EXAM: XR WRIST LT LIMITED INDICATION: F/U FRACTURE. COMPARISON: CR XR WRIST LT LIMITED from 03/09/2024 TECHNIQUE: 2D digital imaging was performed. Two views. FINDINGS: Stable fracture and hardware alignment. Continued healing of the distal radial fracture. Stable non united fragment of the ulnar styloid. No new abnormalities. DATA REPOSITORY: RADIATION DOSE DELIVERED:
--- NOTE | 2024-04-19 08:30 | DI.RAD_ITS ---
Exam(s) XR KNEE RT 3V AP,LAT,JENNIFER EXAM: XR KNEE RT 3V AP,LAT,JENNIFER CLINICAL HISTORY: RIGHT KNEE PAIN. TECHNIQUE: 2D digital imaging was performed. COMPARISON: No exams were available for comparison FINDINGS: 3 views No evidence fracture nor joint space narrowing. Small amount of increased joint fluid noted. All 3 compartment exhibits normal height. Bone density normal. No significant osseous lesions. IMPRESSION: No significant osseous findings in the right knee. Small amount of increased joint fluid noted. DATA REPOSITORY: RADIATION DOSE DELIVERED:
== END 2024-04-19 14:45 | disposition home or self-care (01) ==
LOC: DIORS 14:44
PROVIDERS: PCP Nurse Practitioner Family; Visit Provider Student in an Organized Health Care Education/Training Program
DX: S52.502D Unspecified fracture of the lower end of left radius, subsequent encounter for closed fracture with routine healing (principal); M25.561 Pain in right knee; X58.XXXD Exposure to other specified factors, subsequent encounter
CPT/HCPCS: 73562; 73100

== ENCOUNTER 2024-05-19 03:46 | Outpatient (CLI) | payer OTHER, SELFPAY ==
--- NOTE | 2024-05-19 07:30 | DI.MRI_ITS ---
Exam(s) MR LOWER JOINT RT WO EXAM: MR LOWER JOINT RT WO CLINICAL HISTORY: R knee pain,INTERNAL DERANGEMENT,M23.91. TECHNIQUE: Multiplanar multisequence MRI was performed. COMPARISON: CR XR KNEE RT 3V AP,LAT,JENNIFER from 04/19/2024 FINDINGS: BONES: No acute fracture. There is mild marrow edema seen in the posterior aspect of the lateral fem oral condyle. JOINTS: Articular cartilage is unremarkable. No effusion is present. TENDONS: Extensor mechanism: Unremarkable. Medial retinaculum: Unremarkable. Lateral retinaculum: Unremarkable. Popliteus: Unremarkable. MUSCLES: Unremarkable. MENISCI: The medial meniscus is unremarkable. The lateral meniscus is unremarkable. SOFT TISSUES: Unremarkable. LIGAMENTS: Anterior Cruciate: Unremarkable. Posterior Cruciate: Unremarkable. Medial Collateral:Unremarkable. Lateral Collateral: Unremarkable. OTHER: IMPRESSION: 1. No evidence of a meniscal or ligament tear. 2. Small bone bruise at the posterior aspect of the lateral femoral condyle. DATA REPOSITORY:
== END 2024-05-19 04:06 ==
LOC: DI 03:46
PROVIDERS: PCP Nurse Practitioner Family; Visit Provider Student in an Organized Health Care Education/Training Program
DX: M23.91 Unspecified internal derangement of right knee (principal)
CPT/HCPCS: 73721

== ENCOUNTER 2024-05-25 15:57 | Outpatient (CLI) | payer OTHER, SELFPAY ==
--- NOTE | 2024-05-25 10:45 | DI.RAD_ITS ---
Exam(s) XR WRIST LT LIMITED EXAM: XR WRIST LT LIMITED INDICATION: F/U FRACTURE. COMPARISON: CR XR WRIST LT LIMITED from 04/19/2024 TECHNIQUE: 2D digital imaging was performed. Two views. FINDINGS: Stable fracture and hardware alignment. The distal radial fracture shows continued healing. Ulnar s tyloid fracture is unchanged. No new abnormalities. DATA REPOSITORY: RADIATION DOSE DELIVERED:
--- NOTE | 2024-05-25 11:30 | DI.RAD_ITS ---
Exam(s) XR HIP RT AP LAT ONLY EXAM: XR HIP RT AP LAT ONLY CLINICAL HISTORY: hip pain. TECHNIQUE: 2D digital imaging was performed. Two views COMPARISON: No exams were available for comparison FINDINGS: BONES: No acute fracture is present. No bony destructive lesion is seen. JOINTS: No dislocation present. Mild narrowing of superior hip joint space. Mild acetabular spurring . SOFT TISSUE: Normal. IMPRESSION: Mild degenerative changes of the hip. DATA REPOSITORY: RADIATION DOSE DELIVERED:
== END 2024-05-25 15:58 | disposition home or self-care (01) ==
LOC: DIORS 15:57
PROVIDERS: PCP Nurse Practitioner Family; Visit Provider Student in an Organized Health Care Education/Training Program
DX: S72.421D Displaced fracture of lateral condyle of right femur, subsequent encounter for closed fracture with routine healing (principal); M16.11 Unilateral primary osteoarthritis, right hip; X58.XXXD Exposure to other specified factors, subsequent encounter
CPT/HCPCS: 73100; 73502

== ENCOUNTER 2024-07-14 01:52 | Outpatient (CLI) | payer OTHER, SELFPAY ==
--- NOTE | 2024-07-14 15:15 | DI.MRI_ITS ---
Exam(s) MR LOWER JOINT RT WO EXAM: MR LOWER JOINT RT WO CLINICAL HISTORY: ? LABRUM, RT HIP PAIN, M25.551 TECHNIQUE: Multiplanar multisequence MRI of the right hip was performed. COMPARISON: No exams were available for comparison FINDINGS: MARROW:There is no evidence of fracture, bone contusion, nor avascular necrosis. There are no signif icant osseous lesions.There is no significant osseous excrescence at the femoral head-neck junction t o suggest the presence of cam-type TAMIKO. EFFUSION: There is no evidence of prominent hip joint effusion. BURSAE: There is no evidence of trochanteric bursitis. There is no evidence of iliopsoas bursitis. HIP JOINT SPACE: Mild degenerative changes. No degenerative subarticular cysts.There is no hypertrop hy of the ligamentum teres nor signal abnormality at the fovea centralis. LABRUM: There is a tear in the anterosuperior labrum with fluid signal interposition between the labr um and acetabular rim. There is no evidence of paralabral cyst. TENDONS: There is small focus of signal abnormality at the insertional aspect the gluteus medius tend on on the greater trochanter consistent mild partial tearing ISCHIAL TUBEROSITY/HAMSTRING: There is no abnormal intraosseous signal in the ipsilateral ischial tub erosity nor tear of the common hamstrings tendon attachment site at this level. OTHER: There is no abnormal intramuscular signal within the quadratus femoris to suggest the presence of impingement syndrome at this level. IMPRESSION: 1. There is a tear in the anterosuperior labrum of the right hip. 2. There is focus of signal abnormality the insertional aspect of the gluteus medius tendon upon the superior aspect of the greater trochanter, consistent with small area of partial tearing. There is no evidence of trochanteric bursitis. 3. Mild degenerative changes. No osteophytes. No degenerative subarticular cysts. DATA REPOSITORY:
--- NOTE | 2024-07-14 20:31 | DI.VRAD_ITS ---
PROCEDURE INFORMATION: Exam: MR Right Lower Extremity Joint Without Contrast; Hip Exam date and time: 07/14/2024 2:35 PM Age: 48 years old Clinical indication: Right; R hip pain TECHNIQUE: Imaging protocol: Magnetic resonance imaging of the right lower extremity joint without contrast. Exam focused on the hip. COMPARISON: MR LOWER JOINT RT WO 05/19/2024 10:11 AM FINDINGS: Bones/joints: No acute or chronic fracture. No marrow signal abnormality. Moderately prominent red marrow is incidentally noted. No joint effusion at the hip. Normal marrow signal is observed in the right femoral head, and there is no evidence of avascular necrosis. Labrum: Irregular linear signal abnormality is observed in the anterior superior right acetabular labrum. Bursae: There is no fluid accumulation at the trochanteric bursa. TENDONS: Tendons of iliopsoas group: Unremarkable. No evidence of tear. Tendons of medial compartment of thigh: Unremarkable. No evidence of tear. Tendons of lateral rotators of hip: Unremarkable. No evidence of tear. Tendons of gluteal group: Mild signal abnormality is noted adjacent to the greater trochanter, primarily at the gluteus medius/minimus insertion site. Soft tissues: Unremarkable. IMPRESSION: 1. No acute findings. No fracture. No avascular necrosis. No joint effusion. 2. Nondisplaced tear, anterior superior acetabular labrum. 3. Insertional strain, gluteus medius/minimus. Dictated and Authenticated by: Bg Jackson MD. Orderin Greg Felton MD
== END 2024-07-14 02:12 ==
LOC: DI 01:52
PROVIDERS: PCP Nurse Practitioner Family; Visit Provider Student in an Organized Health Care Education/Training Program
DX: S73.191A Other sprain of right hip, initial encounter (principal); X58.XXXA Exposure to other specified factors, initial encounter
CPT/HCPCS: 73721

== ENCOUNTER 2024-08-14 16:39 | Emergency (ER) | payer OTHER, SELFPAY ==
[2024-08-14 16:44] VITALS: BP 159/113; PULSE 108; RESP 16; TEMP 36.8; O2SAT 96
--- NOTE | 2024-08-14 17:00 | W.ED.GENAD ---
Discharge Plan Disposition Patient Disposition: Home Condition: Stable Discharge Details Clinical Impression: Dental infection Primary Care Provider: Demi Domingo ED Provider: Catrachita Noble Home Meds and New Rx's Prescriptions: New amoxicillin-pot clavulanate 875-125 mg tablet 1 tab PO BID 7 Days Qty: 14 0RF No Action rosuvastatin 10 mg tablet 10 mg PO DAILY Qty: 90 3RF Centrum Silver Men 300-600-300 mcg Tablet 1 tab PO DAILY Discharge Instructions Instructions: Dental Pain (DC) Additional Instructions: You were seen in the emergency department today for evaluation of dental pain and facial swelling concerning for a dental infection. In our department you do full physical examination performed, and received a prescription for antibiotics to be taken for the next week. Please take all this medication until it is gone, even if you start to feel better. Ultimately you need to be evaluated by a dentist as that tooth may need to be extracted or filled. Please call to make that appointment at your earliest convenience. You can continue to use Aleve for pain management, it is also safe to mix this medication with Tylenol, you can take 2 regular or extra strength Tylenol every 6 hours as needed for pain. Please follow-up with your primary care provider in the next few days to discuss this visit and any symptoms that change, worsen, or persist. Thank you for allowing us to be part of your care. HPI General Mode of arrival: ambulatory. Date/Time Provider Initiated Documentation: 08/14/24 16:41. Limitations to Documentation: no limitations. Information obtained by: patient and old records reviewed. HPI Narrative: HPI: This is a 48-year-old male patient with a history of hyperlipidemia who is presenting for evaluation of tooth pain and facial swelling. The patient reports that approximately 3 days ago he started to have pain in the area of the lower molar, states that he has no tooth decay and carried disease, but the swelling is new. He has felt subjectively febrile intermittently, states that the pain waxes and wanes throughout the day. The pain improves with pressure over the area, as well as intermittently with Aleve. He uses Listerine mouthwash which also temporarily improves the pain. He states that he has not had any changes in vision, neck stiffness or difficulty with range of motion, nor trismus. He has not been able to establish with a dentist yet. Exam: Gen: Awake and alert, in no apparent distress HEENT: Non-icteric sclera, PERRL, EOMs full and without entrapment. The patient has mild submandibular swelling and tender lymphadenopathy. The left lower second molar is partially eroded with significant dental hernando disease but no evidence for periapical swelling or abscess. No trismus or submandibular induration Neck: Supple, no decreased range of motion or meningismus Lungs: No apparent respiratory distress, normal respiratory effort. CV: Appears well perfused, strong distal pulses, regular rate at the time of this provider's examination Abdomen: Non-distended MSK: Moves 4 extremities without apparent limitation in ROM Skin: Visualized skin without rashes, cyanosis. Neuro: Normal Gait, no obvious focal deficits or facial asymmetry. Speaks in full, clear sentences. Psych: Appropriate for situation. MDM: This is a 48-year-old male patient presenting for evaluation of tooth pain and facial swelling. My differential includes but is not limited to dental infection, dental carry disease, no evidence for periapical abscess. The patient reassuringly does not have physical exam evidence for deep space abscess, and is hemodynamically appropriate, afebrile off of medications, and have a lower concern for systemic illness such as sepsis or bacteremia. ED Course: I provided the patient with a take-home pack of Augmentin, as well as a prescription for same. I recommended ongoing management of pain with Aleve and addition of Tylenol for breakthrough pain. I encouraged the patient to schedule an appointment with a dentist for definitive management. At this time, the patient has had a full medical evaluation and is safe for discharge to home. They are hemodynamically stable, ambulatory, and tolerating PO. They are understanding of the follow-up plan and return precautions. They left our facility without incident. Catrachita Noble MD Related Data Home Medications ?Medication ?Instructions ?Recorded ?Confirmed [id number] 300 mcg-K 60 1 tab PO DAILY 05/05/22 08/14/24 mcg-lycop 600 mcg-lutein 300 mcg tablet (Centrum Silver Men) rosuvastatin 10 mg tablet 10 mg PO DAILY #90 tabs 07/01/24 08/14/24 amoxicillin 875 mg-potassium 1 tab PO BID 7 days #14 tabs 08/14/24 clavulanate 125 mg tablet Previous Rx's ?Medication ?Instructions ?Recorded rosuvastatin 10 mg tablet 10 mg PO DAILY #90 tabs 07/01/24 amoxicillin 875 mg-potassium 1 tab PO BID 7 days #14 tabs 08/14/24 clavulanate 125 mg tablet Allergies Allergy/AdvReac Type Severity Reaction Status Date / Time caffeine Allergy Intermediate diarrhea, Verified 08/14/24 16:47 rapid heart rate coconut Allergy Intermediate Diarrhea Verified 08/14/24 16:47 General Stated Complaint: DentalOral PUJA: 4 Course Vital Signs Vital signs: Vital Signs Temperature 36.8 C 08/14/24 16:44 Pulse 108 H 08/14/24 16:44 Respiratory Rate 16 08/14/24 16:44 Blood Pressure 159/113 H 08/14/24 16:44 Pulse Oximetry 96 08/14/24 16:44 Temperature 36.8 C 08/14/24 16:44 Temperature Source Oral 08/14/24 16:44 Pulse 108 H 08/14/24 16:44 Respiratory Rate 16 08/14/24 16:44 Blood Pressure 159/113 H 08/14/24 16:44 Blood Pressure Position Sitting 08/14/24 16:44 Pulse Oximetry 96 08/14/24 16:44 Oxygen Delivery Method Room Air 08/14/24 16:44 Oxygen Flow Rate 0 08/14/24 16:44 Pain Level 4 08/14/24 16:44 Medical Decision Making Quality:SDOH Health Related Social Needs: No Data to Display [facility] All Active Problems (Updated 08/14/24 @ 17:00 by Catrachita Noble MD) Dental infection (Acute) Labral tear of right hip joint (Acute) Stiffness of left hand joint (Acute) Hyperlipidemia (Chronic) Psoriasis (Chronic) Tinnitus (Chronic) Hearing loss ruled out with [facility] audiology 2023 Obesity (BMI 30-39.9) (Chronic) Surgical History S/P ORIF (open reduction internal fixation) fracture (01/15/24) Left distal radius ORIF Family History (Updated 07/01/24 @ 09:33 by Chelle Perla) Self Adopted Maternal Grandmother No problems noted. Maternal Grandfather No problems noted. Paternal Grandmother No problems noted. Paternal Grandfather No problems noted. 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 Sexually active: No Do you think of yourself as: straight/heterosexual Current gender identity: male What is your relationship status?: How often do you talk on the phone with friends or family?: once per week How often do you get together with friends or relatives?: once per week How often do you attend pentecostalism or zoroastrian services?: decline to answer Do you belong to any clubs or organized social groups?: no Panel score (0-1 are the most socially isolated patients): 0 What type of physical activity do you participate in: other Details: Daily work Duration: > 90 minutes/day Frequency: 5-6 times per week Galilea/Religious: None Special galilea needs: No Seatbelt use: always Helmet use: No Drive intox or ride w/intox bung driver: No Firearms in home: No Do you feel safe at home: Yes Do you feel safe in your relationship?: Yes Victim of physical abuse: No Victim of emotional abuse: No Victim of sexual abuse: No Would you like helpful sources: No PAWSS Have you Been Recently Intoxicated or Drunk Within the Last 30 days?: No Have you Ever Experienced Previous Episodes of Alcohol Withdrawal?: No Have you ever Experienced Withdrawal Seizures?: No Have you ever Experienced Delirium Tremens(DT)s?: No Have you ever undergone Alcohol Rehabilitation Treatment (i.e, inpt ot outpatient treatment programs)?: No Have you ever Experienced Blackouts?: No Have you ever Combined Alcohol with other Downers within the last 90 days?: No Have you ever Combined Alcohol with any other Substance of Abuse during the last 90 days?: No Positive Blood Alcohol level on Presentation? [PCS.BAL]: No Evidence of Increased Autonomic Activity (i.e. HR>120, tremor, sweating, agitation, nausea)?: No Result: 0
[2024-08-14 17:08] VITALS: BP 148/74; PULSE 92; RESP 18; TEMP 36.8; O2SAT 98
[2024-08-14] MEDS: Amox. 875/Clav. 125, 2 TABS/BTL 1 TAB PO (17:10)
== END 2024-08-14 17:08 | disposition home or self-care (01) ==
PROVIDERS: Emergency Provider Emergency Medicine; PCP Nurse Practitioner Family
DX: K08.89 Other specified disorders of teeth and supporting structures (principal); K04.7 Periapical abscess without sinus; E78.5 Hyperlipidemia, unspecified
CPT/HCPCS: 99283